=== PATIENT | female | born 1975 | race Caucasian/White ===

== ENCOUNTER → 2020-04-06 | Outpatient (CLI) | payer OTHER ==
[~2020-04-06] MED LIST: CIPROFLOXACIN500 M1 PO; MOBIC7.5 M1 PO; PERCOCET PO; PYRIDIUM200 MG PO; ZANAFLEX4 M1 PO
== END ==
LOC: M.RAD 15:01
PROVIDERS: ATTEND General Practice
DX: Z12.39 Encounter for other screening for malignant neoplasm of breast (principal); R92.2 Inconclusive mammogram

== ENCOUNTER → 2021-04-20 | Outpatient (CLI) | payer OTHER | LOC: M.RAD 12:41 | PROVIDERS: ATTEND General Practice | DX: Z12.31 Encounter for screening mammogram for malignant neoplasm of breast (principal) ==